=== PATIENT | male | born 2000 | race Caucasian/White ===

== ENCOUNTER 2023-04-12 16:15 | Emergency (ER) | payer OTHER, SELFPAY ==
[2023-04-12 16:42] VITALS: BP 148/85; PULSE 64; RESP 14; TEMP 36.9; O2SAT 99; BMI 24.3
--- NOTE | 2023-04-12 19:03 | ED_ITS ---
HPI - Skin/Abscess/Foreign Bdy <Rojelio Gonzalez PA-C - Last Filed: 04/12/23 19:08> General Chief complaint: Skin/Abscess/Foreign Body Stated complaint: Poss infection? Time Seen by Provider: 04/12/23 16:47 Source: patient Mode of arrival: Ambulatory Limitations: no limitations History of Present Illness HPI narrative: 22-year-old male with no reported past medical history presents to the ED with 3 days of wound on his right upper arm. Patient states that he was working outside, noted a small wound that looked like a pin prick at 1st. Patient states that the wound has gotten bigger and that he has noticed a red streak that seems to be going from the wound proximally. Patient denies fever, chills, nausea, vomiting. Patient states that the wound feels somewhat painful, however denies any itching or discharge. Related Data Previous Rx's Medication Instructions Recorded cephalexin 500 mg capsule 500 mg PO BID 5 days #10 caps 04/12/23 cephalexin 500 mg capsule 500 mg PO BID 5 days #10 caps 04/12/23 Allergies Allergy/AdvReac Type Severity Reaction Status Date / Time No Known Drug Allergies Allergy Verified 04/12/23 16:46 Review of Systems <Rojelio Gonzalez PA-C - Last Filed: 04/12/23 19:08> Review of Systems ROS Unobtainable: All systems reviewed & are unremarkable except as noted in HPI and below Constitutional Constitutional: Denies chills, Denies fatigue, Denies fever(s), Denies frequent falls, Denies lethargy and Denies weakness Eyes Eyes: Denies change in vision, Denies eye discharge, Denies irritation and Denies loss of vision ENT Ears, Nose, Mouth, and Throat: Denies change in voice, Denies dizziness, Denies neck pain, Denies sore throat and Denies throat swelling Cardiovascular Cardiovascular: Denies chest pain, Denies irregular heart rhythm, Denies lighthe adedness, Denies palpitations, Denies dyspnea, Denies dyspnea on exertion and Denies orthopnea Respiratory Respiratory: Denies cough, Denies dyspnea, Denies dyspnea on exertion and Denies wheezing Gastrointestinal Gastrointestinal: Denies abdominal pain, Denies change in bowel habits, Denies diarrhea, Denies nausea and Denies vomiting Genitourinary Genitourinary: Denies hematuria, Denies flank pain, Denies urinary incontinence and Denies urinary urgency Musculoskeletal Musculoskeletal: Denies back pain, Denies muscle weakness, Denies neck pain, Denies numbness and Denies tingling Integumentary/Breasts Skin/Breast: Denies pruritus, Denies erythema, Denies rash and Reports wounds Neurologic Neurologic: Denies behavioral changes, Denies confusion, Denies dizziness, Denies frequent falls, Denies loss of vision, Denies numbness, Denies tingling and Denies weakness Psychiatric Psychiatric: Denies anxiety, Denies behavioral changes, Denies confusion, Denies depression, Denies homicidal ideation and Denies suicidal ideation Endocrine Endocrine: Denies fatigue, Denies flushing and Denies palpitations Hematologic/Lymphatic Hematologic/Lymphatic: Denies easy bruising Allergic/Immunologic Allergic/Immunologic: Denies urticaria, Denies throat swelling and Denies wheezing Patient History <Rojelio Gonzalez PA-C - Last Filed: 04/12/23 19:08> Social History Smoking Status: Never smoker Smoking Status: Never smoker alcohol intake frequency: 0-2 drinks per day Substance Use Type: does not use Exam <Rojelio Gonzalez PA-C - Last Filed: 04/12/23 19:08> Narrative Exam Narrative: Const General:?cooperative, healthy appearing and comfortable [facility] Head:?normal to inspection Ears:?hearing grossly normal bilaterally Nose:?external nose normal Face and sinus:?normal facial exam and sinuses nontender Mouth:?oral mucosae normal Throat:?posterior oropharynx normal Eyes General:?appearance normal, both eyes and all related structures Neck Neck:?normal visual inspection and no lymphadenopathy noted Resp Effort & Inspection:?normal respiratory effort Auscultation:?clear to auscultation bilaterally Cardio Rate:?regular rate Rhythm:?regular rhythm Integumentary There is a small wound that looks like an abrasion on the left upper arm. There is some streaking from the wound proximally. No discharge. Neuro General:?patient alert, patient awake and patient oriented x3 Initial Vital Signs Initial Vital Signs: Vital Signs Temperature 98.5 F 04/12/23 16:42 Pulse Rate 64 04/12/23 16:42 Respiratory Rate 14 04/12/23 16:42 Blood Pressure 148/85 H 04/12/23 16:42 Pulse Oximetry 99 04/12/23 16:42 Oxygen Delivery Method Room Air 04/12/23 16:42 <Arcelia Rodriguez MD - Last Filed: 04/12/23 19:29> Initial Vital Signs Initial Vital Signs: Vital Signs Temperature 98.5 F 04/12/23 16:42 Pulse Rate 64 04/12/23 16:42 Respiratory Rate 14 04/12/23 16:42 Blood Pressure 148/85 H 04/12/23 16:42 Pulse Oximetry 99 04/12/23 16:42 Oxygen Delivery Method Room Air 04/12/23 16:42 Course <Rojelio Gonzalez PA-C - Last Filed: 04/12/23 19:08> Vital Signs Vital signs: Vital Signs - 8 hr 04/12/23 16:42 Temperature 98.5 F Pulse Rate 64 Respiratory Rate 14 Blood Pressure 148/85 H Pulse Oximetry 99 Oxygen Delivery Method Room Air <Arcelia Rodriguez MD - Last Filed: 04/12/23 19:29> Vital Signs Vital signs: Vital Signs - 8 hr 04/12/23 16:42 Temperature 98.5 F Pulse Rate 64 Respiratory Rate 14 Blood Pressure 148/85 H Pulse Oximetry 99 Oxygen Delivery Method Room Air MDM - Skin/Abscess/Foreign Bdy <Rojelio Gonzalez PA-C - Last Filed: 04/12/23 19:08> MDM Narrative Medical decision making narrative: 22-year-old male with no reported past medical history presents to the ED with 3 days of wound on his right upper arm. Given the streaking from the wound going proximally, patient likely has cellulitis. Will treat with antibiotics. ED return precautions discussed with patient. Patient verbalized understanding. Medical records reviewed: Yes Discharge Plan Departure Patient Disposition: Home Clinical Impression: Cellulitis Instructions: DI for Cellulitis -- Adult Activity Restrictions/Additional Instructions: You were evaluated in the ED today for a wound. It is possible that the wound is infected. You are being prescribed antibiotics, please take those as prescribed. Return to the ED if you have worsening symptoms, fever, chills, persistent vomiting. Please follow-up with your PCP as soon as possible. Prescriptions: New cephalexin 500 mg capsule 500 mg PO BID 5 Days Qty: 10 0RF cephalexin 500 mg capsule 500 mg PO BID 5 Days Qty: 10 0RF Stand Alone Forms: Patient Portal/API <Arcelia Rodriguez MD - Last Filed: 04/12/23 19:29> Cosign ED Attending Cosignature Attestation: I do not see this patient. I was available at all times for consultation.
== END 2023-04-12 16:59 | disposition home or self-care (01) ==
PROVIDERS: Emergency Provider Student in an Organized Health Care Education/Training Program
DX: L03.113 Cellulitis of right upper limb (principal)
CPT/HCPCS: 99281